=== PATIENT | male | born 1935 | race Caucasian/White ===

== ENCOUNTER → 2016-12-24 | Outpatient (CLI) | payer BC ==
[2016-02-07 09:08] VITALS: BP 144/69
[~2016-12-24] MED LIST: ASPI-482 PO; BUDE10.2 IH; CYAN50LO PO; DOCU100C PO; KRIL500C PO; METO25TA4 PO; MULT-658 PO; OMEP40CA5 PO; OXYC-244 PO
--- NOTE | 2016-12-24 08:53 | RAD ---
Thyroid ultrasound, 12/24/2016: History: Abnormal TSH The right lobe of the gland measures 2.6 x 1.0 x 0.9 cm while the left lobe of the gland measures 2.8 x 1.0 x 1.2 cm. The gland is therefore at the lower limits of normal in size. The thyroid echo pattern is homogeneous. No thyroid mass is evident. IMPRESSION: No significant abnormality is detected.
== END | disposition home or self-care (01) ==
LOC: US 06:34
PROVIDERS: ATTEND Family Medicine
DX: R94.6 Abnormal results of thyroid function studies (principal)
CPT/HCPCS: 76536

== ENCOUNTER → 2017-04-13 | Outpatient (CLI) | payer BC ==
[2016-02-07 09:08] VITALS: BP 144/69
[~2017-04-13] MED LIST changes: +DOCU-150 PO; -DOCU100C PO; -OXYC-244 PO; +OXYC-327 PO
--- NOTE | 2017-04-13 15:29 | CARD ---
APPROVED REPORT EXAM: Two-dimensional and M-mode echocardiogram with Doppler and color Doppler. Other Information Quality : Average Rhythm : NSR INDICATION Dyspnea 2D DIMENSIONS RVDd3.2 (2.9-3.5cm)Left Atrium(2D)2.8 (1.6-4.0cm) IVSd1.1 (0.7-1.1cm)Aortic Root(2D)3.2 (2.0-3.7cm) LVDd4.6 (3.9-5.9cm)LVOT Diameter2.2 (1.8-2.4cm) PWd1.1 (0.7-1.1cm)LVDs2.5 (2.5-4.0cm) FS (%) 34.0 %SV71.5 ml LVEF(%)65.4 (>50%) Aortic Valve AoV Peak Edward.139.3cm/sAoV VTI26.1cm AO Peak GR.7.8mmHgLVOT Peak Edward.125.9cm/s LVOT VTI 24.10cmAO Mean GR.4mmHg CONRADO (VMAX)3.24en2FMX (VTI)3.51cm2 Mitral Valve MV E Dfkavzzq97.9cm/sMV DECEL [id number] MV A Vqhqhizc03.8cm/sMV UUF21nk E/A Ratio2.0MV A Wxtsqjph942gg MVA (PHT)3.74cm2 TDI E/Lateral E'5.6E/Medial E'6.6 Tricuspid Valve TR P. Hazgzdgl587tl/sRAP KMXLOCCI7hqCf TR Peak Gr.91ajRvKUNM03ziQp LEFT VENTRICLE The left ventricle is normal size. There is normal left ventricular wall thickness. Left ventricle sy stolic function is normal. The Ejection Fraction is 60-65%. There is normal LV segmental wall motion. The left ventricular diastolic function and filling is normal for age. There is no ventricular septa l defect visualized. RIGHT VENTRICLE The right ventricle is normal size. The right ventricular systolic function is normal. ATRIA The left atrium size is normal. The right atrium size is normal. The interatrial septum is intact wit h no evidence for an atrial septal defect or patent foramen ovale as noted on 2-D or Doppler imaging. AORTIC VALVE The aortic valve is moderately to severely sclerotic.Visually appears to be at least moderately steno tic Doppler and Color Flow revealed mild aortic regurgitation. There is no significant aortic valvula r stenosis by doppler interrogation. MITRAL VALVE The mitral valve is normal in structure and function. There is no mitral valve stenosis. Doppler and Color Flow revealed trace mitral regurgitation. TRICUSPID VALVE The tricuspid valve is not well visualized. Doppler and Color Flow revealed moderate tricuspid regurg itation. The PA pressure was estimated at 69 mmHg. There is no tricuspid valve stenosis. PULMONIC VALVE The pulmonic valve is not well visualized. Doppler and Color Flow revealed mild pulmonic valvular reg urgitation. There is no pulmonic valvular stenosis. GREAT VESSELS The aortic root is normal in size. The ascending aorta is normal in size. The IVC is normal in size a nd collapses >50% with inspiration. PERICARDIAL EFFUSION There is no evidence of significant pericardial effusion. Critical Notification Critical Value: No <Conclusion> Left ventricle systolic function is normal. The Ejection Fraction is 60-65%. There is normal LV segmental wall motion. The aortic valve is moderately to severely sclerotic.Visually appears to be at least moderately steno tic but there is no significant stenosis by doppler interrogation. Doppler and Color Flow revealed moderate tricuspid regurgitation. The PA pressure was estimated at 69 mmHg.
== END | disposition home or self-care (01) ==
LOC: ECHO 13:43
PROVIDERS: ATTEND Internal Medicine Cardiovascular Disease
DX: I08.2 Rheumatic disorders of both aortic and tricuspid valves (principal); R06.00 Dyspnea, unspecified
CPT/HCPCS: 93306

== ENCOUNTER → 2017-04-22 | Outpatient (CLI) | payer BC ==
[2016-02-07 09:08] VITALS: BP 144/69
[~2017-04-22] MED LIST changes: +REGADENOSON 0.4 MG/5 ML DISP.SYRIN. IV ONE
--- NOTE | 2017-04-22 13:57 | RAD ---
APPROVED REPORT Test Type: Pharmacological Stress Nurse/Tech: Ayleen Stoll R.N. Test Indications: SOB Cardiac History: COPD, x smoker Medications: See Electronic Medical Record Medical History: See Electronic Medical Record Resting ECG: SB Resting Heart Rate: 54 bpm Resting Blood Pressure: 127/61mmHg Pretest Chest Pain: No chest pain Nurse/Tech Notes S1S2, lungs CTA Consent: The procedure was explained to the patient in lay terms. Informed consent was witnessed. Adriel eout was entered into [employer]. History and Stress Test performed by JAZZ Riley Pharm. Details Pharmacologic stress testing was performed using 0.4mg per 5ml of regadenoson given intravenously ove r 7-10 seconds. Stress Symptoms SOB which decreased back down to his normal baseline SOB POST EXERCISE Reason for Termination: Infusion complete Max HR: 88 bpm Max Blood Pressure: 133/60mmHg Blood Pressure response to exercise: Normal blood pressure response during stress. Heart Rate response to exercise: wnl Chest Pain: No. Arrhythmia: Yes. occ. pac's ST Change: No. INTERPRETATION Stress EKG Conclusion: Baseline EKG showed sinus rhythm. No ischemic changes at peak stress. No arr hythmias. Imaging Protocol IMAGE PROTOCOL: Rest Tc-99m/stress Tc-99m 1 day Rest: Stress: Viability: Radiopharm.Tc99m VtidahenbHw00g Sestamibi Dose11.5mCi 34.3mCi Duration 15min. 10min. Img Date 04/22/2017 04/22/2017 Inj-Img Thhp03qiu. 60min. Rest Admin Site:IV - Right ForearmAdministrator:JAZZ Riley Stress Admin Site: IV - Right ForearmAdministrator: JAZZ Riley STRESS DATA End Diast. Vol.124.0mlAv. Heart Rate79.0bpm End Syst. Vol.33.0mlCO Index BSA0.0L/min Myocardial Ytnp203.0gEject. Mvsphgeh19.0% Stress Rates Pk. Fill Rate3.41EDV/secLVtime Pk. Fill 222.81msec Pk. Empty Rate4.63ESV/secLVtime Pk. Qfdkp665.03msec 09/08 Pk. Fill1.46EDV/sec Stress Scores Regional WT0.00Summed WT1.00 Regional WM0.00Summed WM0.00 Study quality was good. Left Ventricular size was Normal at Rest and Stress. Lung uptake was Normal. Left Ventricular ejection fraction is 73%. The rest and stress images show normal perfusion, normal contraction and thickening. LV Perf. Quant 17 Seg. SSS4.00 17 Seg. SRS9.00 17 Seg. SDS0.00 Stress Defect Extent (% LAD)0.00Rest Defect Extent (% LAD)4.40Rev. Defect Extent (% LAD)0.00 Stress Defect Extent (% LCX) 16.30Rest Defect Extent (% LCX)13.80Rev. Defect Extent (% LCX)0.00 Stress Defect Extent (% RCA)0.00Rest Defect Extent (% RCA)23.30Rev. Defect Extent (% RCA)0.00 Stress Defect Extent (% CAM)5.70Rest Defect Extent (% CAM)14.60Rev. Defect Extent (% CAM)0.00 Conclusion 1. Regadenoson cardioisotope stress test did not show any evidence of ischemia or infarct. 2. Normal left ventricular systolic function with ejection fraction calculated at 73%. 3. Low risk for cardiac events.
--- NOTE | 2017-04-22 14:53 | RAD ---
APPROVED REPORT Patient Location: OUT-PATIENT Indications AAA Duplex Results A/PTransverseLongitudinal Proximal Aorta 3.2cm Mid Aorta 3.4cm Findings Limited grayscale images of the abdominal aorta were obtained due to bowel gas interfering with the e xamination. The maximum aortic dimension measured includes the anterior posterior dimension of approximately 3.4 cm. 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 Critical Notification Critical Value: No <Conclusion> 1. Limited abdominal aortic ultrasound evaluation due to overlying bowel gas but no evidence of high- grade aneurysm noted.
== END | disposition home or self-care (01) ==
LOC: NM 09:30
PROVIDERS: ATTEND Internal Medicine Cardiovascular Disease
DX: I71.4 Abdominal aortic aneurysm, without rupture (principal); R06.00 Dyspnea, unspecified; R06.02 Shortness of breath
CPT/HCPCS: 76770; 78452; 93017; 96374; 96375; 96376; A9500; J2785

== ENCOUNTER → 2018-05-12 | Outpatient (CLI) | payer BC ==
[2016-02-07 09:08] VITALS: BP 144/69
[~2018-05-12] MED LIST changes: -REGADENOSON 0.4 MG/5 ML DISP.SYRIN. IV ONE
--- NOTE | 2018-05-12 13:23 | RAD ---
MR#: [id number] Date of Study: 05/12/2018 Ordering Physician: TENZIN MILLER, Referring Physician: TENZIN MILLER, Tech: Carmen Leonardo RDMS RVT APPROVED REPORT Patient Location: OUT-PATIENT Indications AAA Duplex Results A/PTransverseLongitudinal Proximal Aorta 2.8cm3.4cm Mid Aorta 2.4cm2.7cm Distal Aorta 2.3cm2.5cm Doppler VelocityWaveform Proximal Aorta 77.1 cm/secTriphasic Aorta Mid. 104.2 cm/secTriphasic Distal Aorta 96.2 cm/secTriphasic Findings Stable AAA with measurements as above. Critical Notification Critical Value: No Signed by : Tenzin Miller, Electronically Approved : 05/12/2018 13:22:14
== END | disposition home or self-care (01) ==
LOC: US 14:07
PROVIDERS: ATTEND Internal Medicine Cardiovascular Disease
DX: I71.4 Abdominal aortic aneurysm, without rupture (principal); I10 Essential (primary) hypertension; E11.9 Type 2 diabetes mellitus without complications; J44.9 Chronic obstructive pulmonary disease, unspecified; K21.9 Gastro-esophageal reflux disease without esophagitis; Z87.891 Personal history of nicotine dependence; Z86.79 Personal history of other diseases of the circulatory system; Z88.0 Allergy status to penicillin
CPT/HCPCS: 76770

== ENCOUNTER → 2018-06-07 | Outpatient (CLI) | payer BC ==
[2016-02-07 09:08] VITALS: BP 144/69
[~2018-06-07] MED LIST changes: +IOHEXOL 300 MG/ML 100ML VIAL. IV ONE
--- NOTE | 2018-06-07 12:09 | KCIC ---
Examination: CT ANGIOGRAPHY CHEST History: Chronic respiratory failure with hypoxia, difficulty breathing, COPD Comparison/Correlation: 05/17/2018 two-view chest x-ray exam Findings: Axial images of the chest were obtained following 95 cc Omnipaque 300 IV. Sagittal and coronal reformatted images were provided. Exam was performed according to arteriography protocol. Excellent pulmonary arterial opacification is identified. There is no thromboembolic disease identified to involve the pulmonary arteries. The thoracic aorta is unremarkable for the patient's age. No suspicious infiltrates. Diffuse emphysematous involvement of the lung smith noted. Mild atelectasis of the left lower lobe is present. No pulmonary nodules or masses. No enlarged thoracic lymph nodes. Partially visualized upper abdomen is unremarkable. Small hiatal hernia is present. Bony structures are unremarkable for age. Impression: No pulmonary arterial thromboembolic disease. No suspicious infiltrate. Emphysema. Electronically signed by: Edison Centeno MD (06/07/2018 12:04 PM) [id number]
== END | disposition home or self-care (01) ==
LOC: KCIC CT 10:07
PROVIDERS: ATTEND Family Medicine
DX: J43.9 Emphysema, unspecified (principal); K44.9 Diaphragmatic hernia without obstruction or gangrene; I10 Essential (primary) hypertension; E11.9 Type 2 diabetes mellitus without complications; K21.9 Gastro-esophageal reflux disease without esophagitis; Z86.79 Personal history of other diseases of the circulatory system; Z87.891 Personal history of nicotine dependence; Z88.0 Allergy status to penicillin
CPT/HCPCS: 71275; Q9967